=== PATIENT | male | born 1960 | race Caucasian/White ===

== ENCOUNTER 2018-12-19 08:50 | Inpatient (IN) | payer OTHER ==
[~2018-12-19] VITALS: Ht 170.2 cm; Wt 74.3 kg
[~2018-12-19 08:50] MED LIST: ACETAMINOPHEN 1000 MG/ISO-OSM 100 ML IV ONE; BUPIVACAINE LIPOSOME/PF 1.3%-13.3MG/ML SUSPENSION 20 ML VIAL INJ ONE; CELECOXIB 200 MG CAPSULE PO ONE; MULT-1203 PO; RINGERS SOLUTION,LACTATED 1,000 ML IV ONE; SIMV-260 PO; TAMS-1 PO
[2018-12-19] MEDS ORDERED: RINGERS SOLUTION,LACTATED 1,000 ML IV ONE ×2 (09:15→13:20)
[2018-12-19] MEDS ORDERED: PROPOFOL 1000 MG/ISO-OSM 100 ML IV ONE (11:18)
[2018-12-19] MEDS ORDERED: SODIUM CL IRRIG SOLN BAG 3,000 ML IRRIG ONE (11:48)
[2018-12-19] MEDS ORDERED: BACITRACIN 50,000 UNITS/VIAL ONE (11:48)
[2018-12-19] MEDS ORDERED: BUPIVACAINE HCL/PF 0.5% 30 ML VIAL ONE (11:49)
[2018-12-19] MEDS ORDERED: TRANEXAMIC ACID 1,000 MG in DEXTROSE 5%-WATER 50 ML IV ONE ×2 (12:00→12:15)
[2018-12-19 12:41] VITALS: BP 134/90
[2018-12-19] MEDS ORDERED: FentaNYL CITRATE-PF 100 MCG/2 ML VIAL IVP PRN (13:45)
[2018-12-19] MEDS ORDERED: MEPERIDINE-PF 25 MG/ML VIAL IVP PRN (13:45)
[2018-12-19] MEDS ORDERED: BENZOCAINE/MENTHOL LOZENGE PO PRN (14:45)
[2018-12-19] MEDS ORDERED: DiphenhydrAMINE HCL 50 MG/ML VIAL IVP PRN (14:45)
[2018-12-19] MEDS ORDERED: ONDANSETRON HCL 4 MG/2 ML VIAL IVP PRN ×2 (14:45→22:15)
[2018-12-19] MEDS ORDERED: ZOLPIDEM TARTRATE 10 MG TABLET PO PRN (14:45)
[2018-12-19] MEDS ORDERED: MAG HYDROX/AL HYDROX/SIMETH 30 ML SUSP UDCUP PO PRN (14:45)
[2018-12-19] MEDS ORDERED: BACITRACIN 28.4 GM OINTMENT TP PRN (14:45)
[2018-12-19] MEDS ORDERED: BISACODYL 10 MG RECTAL RECTAL SUPPOSITORY PR PRN (14:45)
[2018-12-19] MEDS ORDERED: HYDROmorphone 2 MG/ML SYRINGE ONE (15:13)
[2018-12-19] MEDS: HYDROmorphone 2 MG/ML SYRINGE IVP PRN ×2 (15:17→15:42)
[2018-12-19] MEDS: DEXTROSE 5%-LACTATED RINGERS 1,000 ML IV SCH (17:08)
[2018-12-19 17:12] VITALS: BP 109/71
[2018-12-19] MEDS: CYCLOBENZAPRINE HCL 10 MG TABLET PO SCH ×2 (17:14→20:41)
[2018-12-19] MEDS: ACETAMINOPHEN 1000 MG/ISO-OSM 100 ML IV SCH ×2 (17:15→21:37)
[2018-12-19 19:45] VITALS: BP 123/74
[2018-12-19] MEDS ORDERED: OXYGEN THERAPY IH SCH (20:00)
[2018-12-19] MEDS: FAMOTIDINE 20 MG TABLET PO SCH (20:41)
[2018-12-19] MEDS: DOCUSATE SODIUM 100 MG CAPSULE PO SCH (20:41)
[2018-12-19] MEDS: CELECOXIB 100 MG CAPSULE PO SCH (20:41)
[2018-12-19] MEDS: CeFAZolin 1 GM/DEXTROSE 50 ML IV SCH (20:41)
[2018-12-19] MEDS ORDERED: ZOLPIDEM TARTRATE 5 MG TABLET PO PRN (22:15)
[2018-12-19] MEDS ORDERED: ACETAMINOPHEN 325 MG TABLET PO PRN (22:15)
[2018-12-19 23:37] VITALS: BP 107/66
[2018-12-20] MEDS: HYDROmorphone 2 MG/ML SYRINGE IVP PRN ×5 (00:53→19:46)
[2018-12-20] MEDS: SIMVASTATIN 20 MG TABLET PO SCH ×2 (00:57→19:46)
[2018-12-20] MEDS: CeFAZolin 1 GM/DEXTROSE 50 ML IV SCH (04:20)
[2018-12-20 04:28] VITALS: BP 98/60
[2018-12-20] MEDS: ACETAMINOPHEN 1000 MG/ISO-OSM 100 ML IV SCH ×2 (04:46→11:35)
[2018-12-20] MEDS ORDERED: PROPOFOL 1% 20 ML VIAL IVP ONE (06:05)
[2018-12-20] MEDS ORDERED: FentaNYL CITRATE-PF 100 MCG/2 ML VIAL IVP ONE (06:05)
[2018-12-20] MEDS ORDERED: ONDANSETRON HCL 4 MG/2 ML VIAL IVP ONE (06:05)
[2018-12-20] MEDS ORDERED: ROCURONIUM BROMIDE 10 MG/ML 5 ML VIAL IVP ONE (06:05)
[2018-12-20] MEDS ORDERED: MIDAZOLAM HCL 2 MG/2 ML VIAL IVP ONE (06:05)
[2018-12-20] MEDS ORDERED: LIDOCAINE/PF 2% 5 ML VIAL IM ONE (06:05)
[2018-12-20] MEDS ORDERED: DEXAMETHASONE SOD PHOS 4 MG/ML VIAL IVP ONE (06:05)
[2018-12-20] MEDS: CELECOXIB 100 MG CAPSULE PO SCH (08:37)
[2018-12-20] MEDS: DOCUSATE SODIUM 100 MG CAPSULE PO SCH ×4 (08:37→21:00)
[2018-12-20] MEDS: BISACODYL 5 MG EC TABLET PO SCH (08:37)
[2018-12-20] MEDS: PANTOPRAZOLE SODIUM 40 MG/VIAL IVP SCH (08:37)
[2018-12-20] MEDS: MULTIVITAMINS, THERAPEUTIC TABLET PO SCH (08:38)
[2018-12-20] MEDS: FAMOTIDINE 20 MG TABLET PO SCH ×2 (08:38→19:46)
[2018-12-20] MEDS: TAMSULOSIN HCL 0.4 MG CAPSULE PO SCH (08:38)
[2018-12-20] MEDS: CYCLOBENZAPRINE HCL 10 MG TABLET PO SCH ×3 (08:38→19:46)
[2018-12-20 08:47] VITALS: BP 114/43
[2018-12-20 09:22] LABS: BASOPHILS % (AUTO) 0.1 % (0.0-2.0); EOSINOPHILS % (AUTO) 0.1 % (1.0-6.0); HEMATOCRIT 37.1 % (41-53); HEMOGLOBIN 12.2 g/dL (13.5-17.5); LYMPHOCYTES # (AUTO) 1.4 K/uL (1.0-4.8); LYMPHOCYTES % (AUTO) 13.2 % (22.0-44.0); MEAN CORPUSCULAR HEMOGLOBIN 28.9 pg (26.0-34.0); MEAN CORPUSCULAR VOLUME 88 fL (80-100); MONOCYTES # (AUTO) 0.8 K/uL (0.1-1.0); MONOCYTES % (AUTO) 7.7 % (2.0-9.0); NEUTROPHILS # (AUTO) 8.3 K/uL (1.8-7.7); NEUTROPHILS % (AUTO) 78.9 % (40.0-70.0); PLATELET COUNT (AUTO) 358 K/uL (150-450); RED BLOOD CELL COUNT(AUTO) 4.24 MIL/uL (4.50-5.90); RED CELL DISTRIBUTION WIDTH 13.4 % (11.5-14.5)
[2018-12-20 11:34] VITALS: BP 115/72
[2018-12-20] MEDS ORDERED: SODIUM CHLORIDE 0.9% 250 ML IV ONE (11:57)
[2018-12-20] MEDS: DEXTROSE 5%-LACTATED RINGERS 1,000 ML IV SCH (12:36)
[2018-12-20] MEDS: RIVAROXABAN 10 MG TABLET PO SCH (15:11)
[2018-12-20 15:52] VITALS: BP 103/67
[2018-12-20 20:00] VITALS: BP 111/71
[2018-12-21 00:01] VITALS: BP 106/67
[2018-12-21] MEDS: CELECOXIB 100 MG CAPSULE PO SCH ×2 (00:57→08:03)
[2018-12-21] MEDS: HYDROmorphone 2 MG/ML SYRINGE IVP PRN ×3 (00:57→12:20)
[2018-12-21] MEDS: DEXTROSE 5%-LACTATED RINGERS 1,000 ML IV SCH (03:26)
[2018-12-21 04:00] VITALS: BP 96/60
[2018-12-21 07:07] VITALS: BP 112/67
[2018-12-21] MEDS: FAMOTIDINE 20 MG TABLET PO SCH (08:03)
[2018-12-21] MEDS: PANTOPRAZOLE SODIUM 40 MG/VIAL IVP SCH (08:03)
[2018-12-21] MEDS: BISACODYL 5 MG EC TABLET PO SCH (08:03)
[2018-12-21] MEDS: CYCLOBENZAPRINE HCL 10 MG TABLET PO SCH ×2 (08:03→15:44)
[2018-12-21] MEDS: DOCUSATE SODIUM 100 MG CAPSULE PO SCH ×2 (08:03→09:00)
[2018-12-21] MEDS: TAMSULOSIN HCL 0.4 MG CAPSULE PO SCH (08:03)
[2018-12-21] MEDS: MULTIVITAMINS, THERAPEUTIC TABLET PO SCH (08:03)
[2018-12-21 11:23] VITALS: BP 114/56
[2018-12-21 15:26] VITALS: BP 116/67
[2018-12-21] MEDS: RIVAROXABAN 10 MG TABLET PO SCH (16:35)
== END 2018-12-21 19:00 | disposition home or self-care (01) | DRG 301 ==
LOC: 5N 08:50 → 4S 12:21 → 5N 14:00 → 4E 14:05
PROVIDERS: ADMIT Orthopaedic Surgery; ATTEND Orthopaedic Surgery
PROC: 0SR901Z Replacement of Right Hip Joint with Metal Synthetic Substitute, Open Approach (ICD-10-PCS; principal; 2018-12-19 10:00)
DX: M16.11 Unilateral primary osteoarthritis, right hip (principal); E78.00 Pure hypercholesterolemia, unspecified; N40.0 Benign prostatic hyperplasia without lower urinary tract symptoms; I10 Essential (primary) hypertension
CPT/HCPCS: 72170; 73501; 87081; 88300; 93005; 97116; 97162; 97165; 97530; 97535; C9113; C9290; G0238; J0131; J0690; J1100; J1170; J2250; J2405; J2704; J3010; J3490; J7050; J7060; J7120